=== PATIENT | female | born 1995 | race Caucasian/White ===

== ENCOUNTER → 2017-11-20 10:38 | Outpatient (CLI) | payer OTHER, SELFPAY ==
[2017-11-20 12:21] LABS: Hematocrit 42.1 % (37-47); Hemoglobin 13.9 g/dl (12.0-15.0); Mean Corpuscular Hgb 29.8 pg (27.0-32.0); Mean Corpuscular Volume 90.3 fL (81-99); Mean Platelet Vol. 10.4 fl (6.2-12.0); Platelet Count 277 K/mm3 (150-450); RBC Distribution Width CV 12.1 % (11.6-14.6); RBC Distribution Width SD 39.3 fl (35.1-43.9); Red Blood Count 4.66 M/mm3 (4.2-5.4); White Blood Count 5.6 K/mm3 (4.4-11.0)
[2017-11-20 12:32] LABS: Scan Indicated on CBC? Y/N NO
[2017-11-20 12:41] LABS: Estradiol 36.9 pg/mL; Free T3 3.4 pg/mL (2.18-3.98); T4 Free Direct 1.18 ng/dL (0.76-1.46); Thyroid Stim Hormone (TSH) 1.23 uIU/mL (0.358-3.74)
[2017-11-21 08:27] LABS: Progesterone Level 1.24 ng/mL (See Comment)
[2017-11-24 03:07] LABS: Testosterone, Total 60 ng/dL (8-48)
[2017-11-24 10:44] LABS: Testosterone, % Free 2.33 % (0.50-2.80)
== END ==
PROVIDERS: Visit Provider Obstetrics & Gynecology
DX: N92.6 Irregular menstruation, unspecified (principal)
CPT/HCPCS: 36415; 82670; 84144; 84402; 84403; 84439; 84443; 84481; 85027